=== PATIENT | male | born 1945 | race Hispanic/Latino ===

== ENCOUNTER 2018-04-06 19:35 | Observation (INO) | payer MEDICARE, OTHER ==
[~2018-04-06] VITALS: Ht 165.1 cm; Wt 79.6 kg
[2018-04-06 20:20] LABS: BASOPHILS % (AUTO) 1.1 % (0.0-5.0); EOSINOPHILS % (AUTO) 0.2 % (0.0-8.0); HEMATOCRIT 35.7 % (42-54); LYMPHOCYTES % (AUTO) 24.3 % (21.0-51.0); MEAN CORPUSCULAR HEMOGLOBIN 30.6 pg (27.0-33.0); MEAN CORPUSCULAR HGB CONC 35.2 g/dL (32.0-36.0); MEAN CORPUSCULAR VOLUME 86.8 fL (79-99); MONOCYTES % (AUTO) 11.6 % (3.0-13.0); NEUTROPHILS % (AUTO) 62.8 % (40.0-77.0); PLATELET COUNT (AUTO) 197 K/uL (130-400); RED BLOOD CELL COUNT(AUTO) 4.11 MIL/uL (4.50-6.20); RED CELL DISTRIBUTION WIDTH 13.5 % (11.0-15.5); WHITE BLOOD COUNT (AUTO) 8.3 K/uL (4.8-10.8)
[2018-04-06 20:35] LABS: POTASSIUM 4.1 mmol/L (3.5-5.1)
[2018-04-06 20:41] LABS: ALBUMIN 2.2 g/dL (3.5-5.0); BILIRUBIN,TOTAL 0.2 mg/dL (0.2-1.0); TOTAL PROTEIN, SERUM 5.7 g/dL (6.0-8.3)
[2018-04-06] MEDS ORDERED: TETANUS/DIPHTHERIA TOXOID [ADULT] 0.5 ML VIAL IM ONE (23:19)
[2018-04-07 00:03] VITALS: BP 103/52
[2018-04-07] MEDS ORDERED: SODIUM CHLORIDE 0.9% 1000ML 1,000 ML IV SCH (00:30)
[2018-04-07] MEDS ORDERED: ONDANSETRON HCL MDV 20ML 2 MG/ML VIAL IVP PRN (00:30)
[2018-04-07] MEDS ORDERED: ACETAMINOPHEN 325 MG TAB PO PRN (00:30)
[2018-04-07] MEDS ORDERED: GLUCAGON 1MG KIT 1 MG ML IM PRN (00:30)
[2018-04-07] MEDS ORDERED: DEXTROSE 50%-WATER 50 ML DISP.SYRIN IV PRN (00:30)
[2018-04-07 03:48] LABS: BASOPHILS % (AUTO) 0.9 % (0.0-5.0); EOSINOPHILS % (AUTO) 0.1 % (0.0-8.0); HEMATOCRIT 39.8 % (42-54); LYMPHOCYTES % (AUTO) 31.1 % (21.0-51.0); MEAN CORPUSCULAR HEMOGLOBIN 30.4 pg (27.0-33.0); MEAN CORPUSCULAR VOLUME 86.7 fL (79-99); MONOCYTES % (AUTO) 11.4 % (3.0-13.0); NEUTROPHILS % (AUTO) 56.5 % (40.0-77.0); PLATELET COUNT (AUTO) 211 K/uL (130-400); RED BLOOD CELL COUNT(AUTO) 4.59 MIL/uL (4.50-6.20); RED CELL DISTRIBUTION WIDTH 13.8 % (11.0-15.5); WHITE BLOOD COUNT (AUTO) 8.2 K/uL (4.8-10.8)
[2018-04-07 03:52] VITALS: BP 107/65
[2018-04-07 04:06] LABS: ALBUMIN 2.6 g/dL (3.5-5.0); BILIRUBIN,TOTAL 0.3 mg/dL (0.2-1.0); CREATININE 2.4 mg/dL (0.5-1.5); POTASSIUM 4.4 mmol/L (3.5-5.1); TOTAL PROTEIN, SERUM 6.5 g/dL (6.0-8.3)
[2018-04-07] MEDS ORDERED: UREA 20% TP (05:48)
[2018-04-07] MEDS ORDERED: LISI10TA7 PO (05:48)
[2018-04-07] MEDS ORDERED: INSLAN SQ (05:48)
[2018-04-07] MEDS ORDERED: THIAM100TB PO (05:48)
[2018-04-07] MEDS ORDERED: FOLI1TAB15 PO (05:48)
[2018-04-07] MEDS ORDERED: GABA-531 PO (05:48)
[2018-04-07] MEDS ORDERED: BUSP10TA3 PO (05:48)
[2018-04-07] MEDS ORDERED: SIMV40TA5 PO (05:48)
[2018-04-07] MEDS ORDERED: DONE10TA43 PO (05:48)
[2018-04-07] MEDS ORDERED: ASPI-891 PO (05:48)
[2018-04-07] MEDS ORDERED: METF500T6 PO (05:48)
[2018-04-07] MEDS ORDERED: TRAZ-185 PO (05:48)
[2018-04-07] MEDS ORDERED: MULT-462 PO (05:48)
[2018-04-07] MEDS ORDERED: RISP2TAB22 PO (07:19)
[2018-04-07] MEDS ORDERED: INSULIN R PO SS1 SQ SCH (07:30)
[2018-04-07 07:44] VITALS: BP 115/67
[2018-04-07 08:48] LABS: APPEARANCE,URINE Clear (CLEAR); BILIRUBIN,URINE Negative (NEGATIVE); COLOR,URINE Dark Yellow (YELLOW); GLUCOSE, URINE (UA) Negative (NEGATIVE); KETONES,URINE Trace mg/dL (NEGATIVE); LEUKOCYTE ESTERASE ,URINE Trace (NEGATIVE); NITRATE,URINE Negative (NEGATIVE); OCCULT BLOOD,URINE Negative (NEGATIVE); PROTEIN,URINE POS 1+ (NEGATIVE)
[2018-04-07] MEDS ORDERED: PANTOPRAZOLE SODIUM 40 MG TABLET.DR PO SCH (09:00)
[2018-04-07] MEDS ORDERED: ENOXAPARIN SODIUM 40 MG/0.4 ML SYRINGE SQ SCH (09:00)
[2018-04-07 09:19] LABS: SQUAMOUS EPITHELIAL CELL,UR Few /HPF (0-2)
[2018-04-07 09:21] LABS: BACTERIA,URINE Few /HPF (None Seen); RBC,URINE 0-1 /HPF (0-1); TRANSITIONAL EPI CELLS,URINE Few /HPF (None Seen)
== END 2018-04-07 09:20 | disposition left against medical advice (07) ==
LOC: EDH 19:35 → EDHIP 21:53 → 2DH 22:49
PROVIDERS: ADMIT Internal Medicine; ATTEND Internal Medicine
DX: R55 Syncope and collapse (principal); I10 Essential (primary) hypertension; E11.9 Type 2 diabetes mellitus without complications; G30.9 Alzheimer's disease, unspecified; F02.80 Dementia in other diseases classified elsewhere, unspecified severity, without behavioral disturbance, psychotic disturbance, mood disturbance, and anxiety; W18.30XA Fall on same level, unspecified, initial encounter; Y93.01 Activity, walking, marching and hiking; Y92.89 Other specified places as the place of occurrence of the external cause; Y99.8 Other external cause status; Z23 Encounter for immunization
CPT/HCPCS: 36415 ×2; 70450; 71045; 73562; 80053 ×2; 81001; 82550; 82948; 84484; 85025 ×2; 90471; 90714; 93005; 96360; 96361; 99285; G0378 ×11; G0480; J7030; J1650

== ENCOUNTER 2020-07-10 11:34 | Emergency (ER) | payer OTHER ==
[~2020-07-10 11:34] MED LIST: ASPI-891 PO; BUSP10TA3 PO; DONE10TA43 PO; FOLI1TAB15 PO; GABA-531 PO; INSLAN SQ; LISI10TA7 PO; METF-444 PO; MULT-462 PO; RISP2TAB22 PO; SIMV-46 PO; THIAM100TB PO; TRAZ-185 PO; UREA 20% TP
[2020-07-10 11:57] LABS: APPEARANCE,URINE CLOUDY (CLEAR); BILIRUBIN,URINE NEGATIVE (NEGATIVE); COLOR,URINE YELLOW (YELLOW); GLUCOSE, URINE (UA) NEGATIVE (NEGATIVE); KETONES,URINE NEGATIVE (NEGATIVE); LEUKOCYTE ESTERASE ,URINE MODERATE (NEGATIVE); NITRATE,URINE POSITIVE (NEGATIVE); OCCULT BLOOD,URINE MODERATE (NEGATIVE); PH,URINE 5.5 (5.0-8.0); PROTEIN,URINE 100 mg/dL (NEGATIVE); UROBILINOGEN,URINE 0.2 mg/dL (0.2-1.0)
[2020-07-10 12:07] LABS: BASOPHILS % (AUTO) 0.9 % (0.0-5.0); CREATININE 1.9 mg/dL (0.5-1.5); HEMATOCRIT 40.1 % (42-54); LYMPHOCYTES % (AUTO) 18.3 % (21.0-51.0); MEAN CORPUSCULAR HEMOGLOBIN 30.9 pg (27.0-33.0); MEAN CORPUSCULAR HGB CONC 33.4 g/dL (32.0-36.0); MEAN CORPUSCULAR VOLUME 92.4 fL (79-99); MONOCYTES % (AUTO) 8.5 % (3.0-13.0); NEUTROPHILS % (AUTO) 71.3 % (40.0-77.0); PLATELET COUNT (AUTO) 235 K/uL (130-400); RED BLOOD CELL COUNT(AUTO) 4.34 MIL/uL (4.50-6.20); RED CELL DISTRIBUTION WIDTH 13.2 % (11.0-15.5)
[2020-07-10 12:12] LABS: ALBUMIN 2.7 g/dL (3.5-5.0); BILIRUBIN,TOTAL 0.3 mg/dL (0.2-1.0); TOTAL PROTEIN, SERUM 7.1 g/dL (6.0-8.3)
[2020-07-10] MEDS ORDERED: CEFTRIAXONE SODIUM 1 GM ONE (12:12)
[2020-07-10] MEDS ORDERED: SODIUM CHLORIDE 0.9% 50 ML IV ONE (12:13)
[2020-07-10 12:25] LABS: SQUAMOUS EPITHELIAL CELL,UR Few /HPF (0-2)
[2020-07-10 12:26] LABS: BACTERIA,URINE Moderate /HPF (None Seen); WBC,URINE 26-50 /HPF (0-1)
== END 2020-07-10 16:13 | disposition home or self-care (01) ==
LOC: EDH 11:34
DX: N39.0 Urinary tract infection, site not specified (principal); E11.9 Type 2 diabetes mellitus without complications; I10 Essential (primary) hypertension; J44.9 Chronic obstructive pulmonary disease, unspecified; I50.9 Heart failure, unspecified; Z87.891 Personal history of nicotine dependence; Z88.6 Allergy status to analgesic agent; Z88.3 Allergy status to other anti-infective agents
CPT/HCPCS: 36415; 80053; 81001; 85025; 87077; 87088; 87186; 96374; 99283; J0696